=== PATIENT | male | born 1995 | race Two or more races ===

== ENCOUNTER 2021-10-09 21:14 | Emergency (ER) | payer SELFPAY ==
[~2021-10-09] VITALS: Ht 182.9 cm; Wt 77.1 kg
--- NOTE | 2021-10-09 21:30 | NUR ---
Dr eubanks at bedside, MSE in progress.
[2021-10-09] MEDS ORDERED: MORPHINE SULFATE 4 MG/1 ML DISP.SYRIN IM ONE (21:45)
[2021-10-09] MEDS ORDERED: KETOROLAC TROMETHAMINE 60 MG INJ IM ONE ×2 (21:45→22:09)
[2021-10-09] MEDS ORDERED: TDAP DIPH,PERTUSS,TET VAC/PF 0.5 ML DISP.SYRIN IM ONE ×2 (21:45→22:12)
--- NOTE | 2021-10-09 22:01 | NUR ---
Accidentally documented 2mg morphine waste twice on [facility] cosigned with RN christine johns
[2021-10-09] MEDS ORDERED: MORPHINE SULFATE 4 MG/1 ML DISP.SYRIN ONE (22:11)
[2021-10-09] MEDS ORDERED: NEOMY/BACITRA/POLYMYXIN B OINT UD PACKET TP ONE (22:38)
--- NOTE | 2021-10-10 01:29 | NUR ---
Patient discharged to home in stable condition. Written and verbal after care instructions given. Patient verbalizes understanding of instructions. Stressed follow up or return to ER for worsening s/s. pt ambulated with steady gait. denies pain. no SOB. no chest pain. AOx4
[2021-10-10 01:30] VITALS: BP 131/84
== END 2021-10-10 01:31 | disposition home or self-care (01) ==
LOC: ER 22:31
DX: S40.811A Abrasion of right upper arm, initial encounter (principal); S80.211A Abrasion, right knee, initial encounter; S40.812A Abrasion of left upper arm, initial encounter; V29.88XA Motorcycle rider (driver) (passenger) injured in other specified transport accidents, initial encounter; Y92.414 Local residential or business street as the place of occurrence of the external cause; J45.909 Unspecified asthma, uncomplicated; R03.0 Elevated blood-pressure reading, without diagnosis of hypertension; M79.645 Pain in left finger(s)
CPT/HCPCS: 73140; 90471; 90715; 96372 ×2; 99284; J1885; J2270